=== PATIENT | male | born 1955 | race Caucasian/White ===

== ENCOUNTER 2024-02-02 18:21 | Inpatient (IN) | payer MEDICARE, OTHER ==
[~2024-02-02] VITALS: Ht 177.8 cm; Wt 134.7 kg
[~2024-02-02 18:21] MED LIST: ROCURONIUM BROMIDE 10MG/ML VIAL 5ML IV ONE
[2024-02-02] MEDS: SODIUM CHLORIDE 0.9% 1,000 ML IV ONE ×2 (18:31→19:44)
[2024-02-02] MEDS: PIPERACILLIN/TAZO 3.375G/50ML 50 ML IV ONE (18:33)
[2024-02-02 18:45] VITALS: PULSE 66; RESP 14; O2SAT 100
[2024-02-02 18:47] LABS: BASOPHILS % 0.9 % (0.0-2.0); EOSINOPHILS % 1.4 % (0.0-5.0); HEMATOCRIT. 39.2 % (42.0-52.0); HEMOGLOBIN. 12.5 g/dL (14.0-18.0); LYMPHOCYTES % 31.5 % (20.0-50.0); MEAN CORPUSCULAR HEMOGLOBIN 30.9 pg (28.0-32.0); MEAN CORPUSCULAR HGB CONC 31.8 g/dL (31.0-37.0); MEAN CORPUSCULAR VOLUME 97.1 fL (80.0-94.0); MEAN PLATELET VOLUME 6.4 fl (7.4-10.4); MONOCYTES % 7.4 % (2.0-8.0); NEUTROPHILS % 58.8 % (40.0-76.0); PLATELET 290 x1000/uL (130-400); RED BLOOD CELL COUNT 4.04 mill/uL (4.7-6.1); RED CELL DISTRIBUTION WIDTH 16.4 % (11.6-14.6); WHITE BLOOD COUNT 11.3 x1000/uL (4.5-11.0)
[2024-02-02 18:55] LABS: CHLORIDE 104 mEq/L (98-107); POTASSIUM 4.3 mEq/L (3.5-5.1); SODIUM 136 mEq/L (136-145)
[2024-02-02 18:56] LABS: CALCIUM 8.5 mg/dL (8.7-10.4); CARBON DIOXIDE 18 mEq/L (21-32)
[2024-02-02 19:01] LABS: CREATININE 0.9 mg/dL (0.6-1.3); ETHANOL BLOOD 117 mg/dL (<10); GLUCOSE 162 mg/dL (70-105); UREA NITROGEN BLOOD 11 mg/dL (9-23)
[2024-02-02 19:03] LABS: ALANINE AMINOTRANSFERASE 75 IU/L (10-49); ALBUMIN 3.8 g/dL (3.2-4.8); ASPARTATE AMINOTRANSFERASE 138 IU/L (<34); BILIRUBIN DIRECT 0.2 mg/dL (<=3.0); BILIRUBIN TOTAL 0.5 mg/dL (0.1-1.0)
[2024-02-02 19:08] LABS: LACTIC ACID 7.2 mmol/L (0.4-2.0); TROPONIN I HIGH SENSITIVITY 54 ng/L (3.0-53)
[2024-02-02 19:53] LABS: D-DIMER 8.61 mg/L FEU (<0.50); PROTHROMBIN TIME 10.7 sec (9.6-11.0)
[2024-02-02 20:30] VITALS: PULSE 64; RESP 28; O2SAT 100
[2024-02-02 21:01] LABS: BG BASE EXCESS -8.5 mmol/L (-2.0-3.0); BG CARBOXYHEMOGLOBIN 0.2 % (0.5-1.5); BG DEOXYHEMOGLOBIN 3.7 % (0.0-5.0); BG FRACTION INSPIRED OXYGEN 100; BG HCO3 ACT 19.7 mmol/L (21.0-28.0); BG METHEMOGLOBIN 0.3 % (0.5-1.5); BG OXYGEN SATURATION 96.3 % (94.0-98.0); BG OXYHEMOGLOBIN 95.8 % (94.0-98.0); BG PCO2 51.6 mmHg (35.0-48.0); BG PO2 98.8 mmHg (83.0-108.0); BG SAMPLE SITE RIGHT RADIAL; BG TOTAL HEMOGLOBIN 13.7 g/dL (13.5-17.5); BG VENT MODE VENT - AC
[2024-02-02] MEDS: PROPOFOL 10MG/ML 100ML 100 ML IV ONE (21:22)
[2024-02-02 22:09] LABS: TROPONIN I HIGH SENSITIVITY 261 ng/L (3.0-53)
[2024-02-02 23:08] LABS: TROPONIN I HIGH SENSITIVITY 315 ng/L (3.0-53)
[2024-02-02 23:24] LABS: BG BASE EXCESS -4.5 mmol/L (-2.0-3.0); BG CARBOXYHEMOGLOBIN 0.4 % (0.5-1.5); BG DEOXYHEMOGLOBIN 0.3 % (0.0-5.0); BG FRACTION INSPIRED OXYGEN 100; BG METHEMOGLOBIN 0.3 % (0.5-1.5); BG OXYGEN SATURATION 99.7 % (94.0-98.0); BG PCO2 40.1 mmHg (35.0-48.0); BG PH 7.336 (7.350-7.450); BG PO2 312.5 mmHg (83.0-108.0); BG SAMPLE SITE LEFT RADIAL; BG TOTAL HEMOGLOBIN 13.3 g/dL (13.5-17.5); BG TOTAL RESPIRATORY RATE 20 b/min; BG VENT MODE VENT - AC
[2024-02-03] VITALS (69 sets, daily range): BP systolic 113–188; BP diastolic 62–93; PULSE 53–105; RESP 16–33; TEMP 36.44736–37.7808; O2SAT 97–100
[2024-02-03] MEDS ORDERED: GUAIFENESIN 200MG/10ML SUGAR FREE UDC PO PRN (00:45)
[2024-02-03] MEDS ORDERED: CLONIDINE 0.1MG TABLET PO PRN (00:45)
[2024-02-03] MEDS ORDERED: IPRATROPIUM/ALBUTEROL 0.5-3(2.5)MG/3ML NEB HHN PRN (00:45)
[2024-02-03] MEDS ORDERED: DEXTROSE 50% WATER 50ML SYRINGE IV PRN (00:45)
[2024-02-03 00:49] LABS: COLOR URINE YELLOW (YELLOW)
[2024-02-03 00:50] LABS: CLARITY URINE CLOUDY (CLEAR); GLUCOSE URINE NEGATIVE (NEGATIVE); KETONES URINE NEGATIVE (NEGATIVE); LEUKOCYTE ESTERASE URINE NEGATIVE (NEGATIVE); NITRITE URINE NEGATIVE (NEGATIVE); OCCULT BLOOD URINE 1+ (NEGATIVE); PH URINE 5.5 (4.5-8.0); PROTEIN URINE 1+ (NEGATIVE); UROBILINOGEN URINE 0.2 E.U./dL (0.2-1.0)
[2024-02-03 00:53] LABS: BACTERIA URINE 2+; SQUAMOUS EPITHELIAL CELL URINE 1+ /lpf (RARE/1+)
[2024-02-03] MEDS: LORAZEPAM 2MG/ML INJ IV PRN (01:13)
[2024-02-03 01:47] LABS: IRON 121 ug/dL (65-175)
[2024-02-03 01:48] LABS: LDL CHOLESTEROL 72 mg/dL (5-100); TRIGLYCERIDE 147 mg/dL (0-150)
[2024-02-03 01:49] LABS: HDL CHOLESTEROL 78 mg/dL (>55)
[2024-02-03 01:50] LABS: CHOLESTEROL 159 mg/dL (<200); TOTAL IRON BINDING CAPACITY 398 ug/dl (250-425)
[2024-02-03 01:51] LABS: FOLIC ACID (FOLATE) SERUM 8.87 ng/mL (>5.38); VITAMIN B12 SERUM 452 pg/mL (211-911)
[2024-02-03 01:52] LABS: THYROID STIMULATING HORMONE 1.74 uIU/mL (0.55-4.78)
[2024-02-03] MEDS ORDERED: MIDAZOLAM 100MG/100ML PMX 100 ML IV PRN (02:30)
[2024-02-03] MEDS: VANCOMYCIN 2,000 MG in DEXT 5% WATER 500 ML IV NR (02:36)
[2024-02-03] MEDS: ACETAMINOPHEN 1000MG/100ML 100 ML IV NR (02:36)
[2024-02-03] MEDS: PROPOFOL 10MG/ML 100ML 100 ML IV SCH (02:36)
[2024-02-03] MEDS: MIDAZOLAM 100MG/100ML PMX 100 ML IV PRN ×2 (03:01→16:21)
[2024-02-03] MEDS: IOHEXOL-350 100 ML BOTTLE ONE (03:19)
[2024-02-03 06:20] LABS: HEMATOCRIT 38.3 % (42.0-52.0); HEMOGLOBIN 12.6 g/dL (14.0-18.0); MEAN CORPUSCULAR HEMOGLOBIN 31.7 pg (28.0-32.0); MEAN CORPUSCULAR HGB CONC 32.7 g/dL (31.0-37.0); MEAN CORPUSCULAR VOLUME 96.9 fL (80.0-94.0); PLATELET 295 x1000/uL (130-400); RED BLOOD CELL COUNT 3.96 mill/uL (4.7-6.1); RED CELL DISTRIBUTION WIDTH 16.7 % (11.6-14.6)
[2024-02-03 06:29] LABS: CARBON DIOXIDE 23 mEq/L (21-32); CHLORIDE 103 mEq/L (98-107); POTASSIUM 4.6 mEq/L (3.5-5.1); SODIUM 133 mEq/L (136-145)
[2024-02-03 06:30] LABS: CALCIUM 8.9 mg/dL (8.7-10.4)
[2024-02-03] MEDS: DEXT 5%/0.45% NACL 1000ML 1,000 ML IV SCH (06:32)
[2024-02-03 06:35] LABS: CREATININE 0.8 mg/dL (0.6-1.3); GLUCOSE 143 mg/dL (70-105); UREA NITROGEN BLOOD 10 mg/dL (9-23)
[2024-02-03 06:36] LABS: CREATINE KINASE MB FRACTION 6.6 ng/mL (0.5-3.6)
[2024-02-03 06:37] LABS: ALANINE AMINOTRANSFERASE 81 IU/L (10-49); ALBUMIN 4.1 g/dL (3.2-4.8); ASPARTATE AMINOTRANSFERASE 151 IU/L (<34); BILIRUBIN TOTAL 0.7 mg/dL (0.1-1.0); PHOSPHORUS 2.2 mg/dL (2.5-4.9); PROTEIN TOTAL 6.5 g/dL (6.0-8.3)
[2024-02-03] MEDS: INSULIN LISPRO 100 UNITS/ML SUBCUT SCH (08:20)
[2024-02-03] MEDS ORDERED: VANCOMYCIN 1GM/200ML PMX (BAXTER) IV SCH (09:00)
[2024-02-03] MEDS: PANTOPRAZOLE SODIUM 40 MG/VIAL IV SCH (09:03)
[2024-02-03] MEDS: ENOXAPARIN 30MG/0.3ML SYR SUBCUT SCH (09:03)
[2024-02-03] MEDS: BLOOD SUGAR DIAGNOSTIC STRIP TEST SCH (09:03)
[2024-02-03] MEDS: PIPERACILLIN/TAZO 3.375G/50ML 50 ML IV SCH (09:04)
[2024-02-03 11:51] LABS: BG BASE EXCESS -0.3 mmol/L (-2.0-3.0); BG CARBOXYHEMOGLOBIN 0.5 % (0.5-1.5); BG DEOXYHEMOGLOBIN 1.6 % (0.0-5.0); BG FRACTION INSPIRED OXYGEN 50; BG HCO3 ACT 23.2 mmol/L (21.0-28.0); BG METHEMOGLOBIN 0.3 % (0.5-1.5); BG OXYGEN SATURATION 98.4 % (94.0-98.0); BG OXYHEMOGLOBIN 97.6 % (94.0-98.0); BG PCO2 34.3 mmHg (35.0-48.0); BG PH 7.448 (7.350-7.450); BG SAMPLE SITE LEFT RADIAL; BG TOTAL HEMOGLOBIN 13.2 g/dL (13.5-17.5); BG TOTAL RESPIRATORY RATE 21 b/min; BG VENT MODE VENT - AC
[2024-02-03] MEDS: IPRATROPIUM/ALBUTEROL 0.5-3(2.5)MG/3ML NEB HHN SCH (13:10)
[2024-02-03] MEDS: BUDESONIDE 0.5MG/2ML NEB HHN SCH (13:10)
[2024-02-03] MEDS: ENOXAPARIN 80MG/0.8ML SYR SUBCUT SCH (13:27)
[2024-02-03] MEDS: THIAMINE HCL 100MG TABLET NG SCH (13:28)
[2024-02-03] MEDS: ASPIRIN 81MG TABLET PO SCH (13:28)
[2024-02-03] MEDS: FOLIC ACID 1MG TABLET NG SCH (13:28)
[2024-02-03] MEDS: MULTIVITAMINS,THER W-MINERALS TABLET NG SCH (13:28)
[2024-02-03] MEDS: MAGNESIUM 2 G PREMIX 50 ML IV NR (15:53)
[2024-02-03] MEDS: SODIUM PHOSPHATE 30 MMOL in DEXT 5% WATER 490 ML IV NR (15:57)
[2024-02-03] MEDS: ATORVASTATIN CALCIUM 40MG TABLET NG SCH (20:23)
[2024-02-03] MEDS: VANCOMYCIN 1GM/200ML PMX (BAXTER) IV SCH (20:23)
[2024-02-03] MEDS: ACETAMINOPHEN 650MG/20.3ML UDC GT PRN (20:23)
[2024-02-03] MEDS: HYDRALAZINE 20MG/ML VIAL IV PRN (20:24)
[2024-02-03] MEDS ORDERED: FENTANYL 2500MCG/250ML PMX 250 ML IV ONE (22:00)
[2024-02-03] MEDS: FENTANYL 2500MCG/250ML PMX 250 ML IV PRN (22:19)
[2024-02-03] MEDS: ENOXAPARIN 100MG/ML SYR SUBCUT SCH (22:44)
[2024-02-03] MEDS: PROPOFOL 10MG/ML 100ML 100 ML IV PRN (22:45)
[2024-02-04] VITALS (75 sets, daily range): BP systolic 81–174; BP diastolic 34–138; PULSE 52–113; RESP 0–34; TEMP 35.2806–38.72532; O2SAT 94–100
[2024-02-04 00:37] LABS: CREATINE KINASE MB FRACTION 12.3 ng/mL (0.5-3.6)
[2024-02-04] MEDS ORDERED: OMEG100017 PO (03:17)
[2024-02-04] MEDS ORDERED: ROSU20TA2 PO (03:17)
[2024-02-04] MEDS ORDERED: LISI20TA31 PO (03:17)
[2024-02-04] MEDS ORDERED: EFEX1 PO (03:17)
[2024-02-04] MEDS ORDERED: TAMS-11 PO (03:17)
[2024-02-04] MEDS ORDERED: APIX5TAB PO (03:17)
[2024-02-04] MEDS ORDERED: SOTA80TA PO (03:17)
[2024-02-04] MEDS ORDERED: GABA-532 PO (03:17)
[2024-02-04] MEDS ORDERED: POTA-205 PO (03:17)
[2024-02-04] MEDS: INSULIN LISPRO 100 UNITS/ML SUBCUT SCH (05:44)
[2024-02-04] MEDS: BLOOD SUGAR DIAGNOSTIC STRIP TEST SCH (05:44)
[2024-02-04 08:36] LABS: BG BASE EXCESS 0.4 mmol/L (-2.0-3.0); BG CARBOXYHEMOGLOBIN 0.4 % (0.5-1.5); BG DEOXYHEMOGLOBIN 2.7 % (0.0-5.0); BG FRACTION INSPIRED OXYGEN 50; BG HCO3 ACT 25.7 mmol/L (21.0-28.0); BG METHEMOGLOBIN 0.3 % (0.5-1.5); BG OXYGEN SATURATION 97.3 % (94.0-98.0); BG OXYHEMOGLOBIN 96.6 % (94.0-98.0); BG PCO2 44.3 mmHg (35.0-48.0); BG PH 7.382 (7.350-7.450); BG PO2 94.6 mmHg (83.0-108.0); BG SAMPLE SITE LEFT RADIAL; BG TOTAL HEMOGLOBIN 13.7 g/dL (13.5-17.5); BG TOTAL RESPIRATORY RATE 30 b/min; BG VENT MODE VENT - AC
[2024-02-04] MEDS: TAMSULOSIN HCL 0.4MG SR CAPSULE PO SCH (08:43)
[2024-02-04] MEDS: ENOXAPARIN 30MG/0.3ML SYR SUBCUT SCH (08:46)
[2024-02-04 10:30] LABS: HEMATOCRIT 44.3 % (42.0-52.0); MEAN CORPUSCULAR HEMOGLOBIN 31.8 pg (28.0-32.0); MEAN CORPUSCULAR HGB CONC 31.7 g/dL (31.0-37.0); MEAN CORPUSCULAR VOLUME 100.4 fL (80.0-94.0); RED BLOOD CELL COUNT 4.42 mill/uL (4.7-6.1); WHITE BLOOD COUNT 9.9 x1000/uL (4.5-11.0)
[2024-02-04 10:43] LABS: CHLORIDE 92 mEq/L (98-107); POTASSIUM 3.9 mEq/L (3.5-5.1); SODIUM 123 mEq/L (136-145)
[2024-02-04 10:44] LABS: CALCIUM 7.7 mg/dL (8.7-10.4); CARBON DIOXIDE 22 mEq/L (21-32)
[2024-02-04 10:49] LABS: CREATININE 0.9 mg/dL (0.6-1.3)
[2024-02-04 10:50] LABS: UREA NITROGEN BLOOD 10 mg/dL (9-23)
[2024-02-04 10:56] LABS: GLUCOSE 471 mg/dL (70-105)
[2024-02-04 11:19] LABS: TRIGLYCERIDE 169 mg/dL (0-150)
[2024-02-04] MEDS: POTASSIUM CHLORIDE 20MEQ/PACKET PO NR (11:50)
[2024-02-04] MEDS: ACETAMINOPHEN 650MG/20.3ML UDC GT PRN (11:50)
[2024-02-04] MEDS: MAGNESIUM 2 G PREMIX 50 ML IV NR (11:50)
[2024-02-04] MEDS: NOREPINEPHRINE 8MG/250ML PMX 250 ML IV PRN (19:23)
[2024-02-04] MEDS ORDERED: PROPOFOL 10MG/ML 100ML 100 ML IV PRN (19:30)
[2024-02-04] MEDS: LEVETIRACETAM 500MG PREMIX 100 ML IV SCH (20:48)
[2024-02-04] MEDS ORDERED: LEVETIRACETAM 500MG in NACL 100ML PREMIX IV SCH (21:00)
[2024-02-05] VITALS (115 sets, daily range): BP systolic 69–240; BP diastolic 42–193; PULSE 56–105; RESP 0–30; TEMP 35.2806–38.28084; O2SAT 96–100
[2024-02-05] MEDS: LORAZEPAM 2MG/ML INJ IV PRN (02:12)
[2024-02-05 06:07] LABS: CARBON DIOXIDE 25 mEq/L (21-32); CHLORIDE 100 mEq/L (98-107); POTASSIUM 3.9 mEq/L (3.5-5.1)
[2024-02-05 06:08] LABS: CALCIUM 8.4 mg/dL (8.7-10.4)
[2024-02-05 06:13] LABS: CREATININE 0.7 mg/dL (0.6-1.3); TRIGLYCERIDE 155 mg/dL (0-150); UREA NITROGEN BLOOD 9 mg/dL (9-23)
[2024-02-05 06:16] LABS: GLUCOSE 140 mg/dL (70-105); SODIUM 132 mEq/L (136-145)
[2024-02-05 06:46] LABS: BASOPHILS % 0.6 % (0.0-2.0); EOSINOPHILS % 1.3 % (0.0-5.0); HEMOGLOBIN. 11.8 g/dL (14.0-18.0); MEAN CORPUSCULAR HEMOGLOBIN 31.9 pg (28.0-32.0); MEAN CORPUSCULAR HGB CONC 32.9 g/dL (31.0-37.0); MEAN PLATELET VOLUME 6.9 fl (7.4-10.4); MONOCYTES % 8.6 % (2.0-8.0); NEUTROPHILS % 78.5 % (40.0-76.0); PLATELET 263 x1000/uL (130-400); RED BLOOD CELL COUNT 3.71 mill/uL (4.7-6.1); RED CELL DISTRIBUTION WIDTH 16.6 % (11.6-14.6); WHITE BLOOD COUNT 10.3 x1000/uL (4.5-11.0)
[2024-02-05 09:08] LABS: BG BASE EXCESS 1.2 mmol/L (-2.0-3.0); BG CARBOXYHEMOGLOBIN 0.4 % (0.5-1.5); BG DEOXYHEMOGLOBIN 4.6 % (0.0-5.0); BG FRACTION INSPIRED OXYGEN 40; BG HCO3 ACT 27.2 mmol/L (21.0-28.0); BG METHEMOGLOBIN 0.3 % (0.5-1.5); BG OXYGEN SATURATION 95.4 % (94.0-98.0); BG OXYHEMOGLOBIN 94.7 % (94.0-98.0); BG PCO2 48.5 mmHg (35.0-48.0); BG PH 7.366 (7.350-7.450); BG SAMPLE SITE RIGHT RADIAL; BG TOTAL HEMOGLOBIN 12.4 g/dL (13.5-17.5); BG VENT MODE VENT - AC
[2024-02-05] MEDS: LEVETIRACETAM 500MG PREMIX 100 ML IV NR (12:15)
[2024-02-05] MEDS: LEVETIRACETAM 1000MG PREMIX 100 ML IV SCH (20:35)
[2024-02-06] VITALS (100 sets, daily range): BP systolic 84–234; BP diastolic 54–187; PULSE 70–104; RESP 7–28; TEMP 36.72516–38.16972; O2SAT 94–100
[2024-02-06] MEDS: ONDANSETRON HCL 4MG/2ML INJ IV PRN (04:41)
[2024-02-06 05:32] LABS: CALCIUM 8.3 mg/dL (8.7-10.4); CARBON DIOXIDE 27 mEq/L (21-32); CHLORIDE 99 mEq/L (98-107); POTASSIUM 4.3 mEq/L (3.5-5.1); SODIUM 130 mEq/L (136-145)
[2024-02-06 05:38] LABS: CREATININE 0.6 mg/dL (0.6-1.3); GLUCOSE 97 mg/dL (70-105); UREA NITROGEN BLOOD 9 mg/dL (9-23)
[2024-02-06 05:56] LABS: HEMATOCRIT 36.1 % (42.0-52.0); HEMOGLOBIN 11.8 g/dL (14.0-18.0); MEAN CORPUSCULAR HEMOGLOBIN 31.7 pg (28.0-32.0); MEAN CORPUSCULAR HGB CONC 32.8 g/dL (31.0-37.0); MEAN CORPUSCULAR VOLUME 96.8 fL (80.0-94.0); PLATELET 244 x1000/uL (130-400); RED BLOOD CELL COUNT 3.73 mill/uL (4.7-6.1); RED CELL DISTRIBUTION WIDTH 16.2 % (11.6-14.6); WHITE BLOOD COUNT 10.6 x1000/uL (4.5-11.0)
[2024-02-06] MEDS: DEXT 5%/0.9% NACL 1,000 ML IV SCH (08:39)
[2024-02-06 10:31] LABS: CREATINE KINASE 726 IU/L (46-171)
[2024-02-06] MEDS ORDERED: MEPERIDINE HCL/PF 50MG/ML CPJ IM PRN (12:15)
[2024-02-06] MEDS: METOCLOPRAMIDE HCL 10MG/2ML VIAL IV SCH (13:22)
[2024-02-06] MEDS ORDERED: LIDOCAINE HCL 1% 10 MG/ML 10ML VIAL ONE (14:13)
[2024-02-06] MEDS: MEPERIDINE HCL/PF 25MG/ML CPJ IM PRN (15:45)
[2024-02-07] VITALS (72 sets, daily range): BP systolic 77–151; BP diastolic 41–123; PULSE 71–111; RESP 0–33; TEMP 36.28068–38.83644; O2SAT 95–100
[2024-02-08] VITALS (62 sets, daily range): BP systolic 86–180; BP diastolic 42–168; PULSE 62–106; RESP 14–39; TEMP 35.89176–38.3364; O2SAT 93–100
[2024-02-08 05:38] LABS: HEMATOCRIT. 33.9 % (42.0-52.0); HEMOGLOBIN. 11.2 g/dL (14.0-18.0); MEAN CORPUSCULAR HEMOGLOBIN 31.8 pg (28.0-32.0); MEAN CORPUSCULAR HGB CONC 32.9 g/dL (31.0-37.0); MEAN CORPUSCULAR VOLUME 96.4 fL (80.0-94.0); MEAN PLATELET VOLUME 7.1 fl (7.4-10.4); PLATELET 256 x1000/uL (130-400); RED BLOOD CELL COUNT 3.51 mill/uL (4.7-6.1); RED CELL DISTRIBUTION WIDTH 16.9 % (11.6-14.6); WHITE BLOOD COUNT 18.1 x1000/uL (4.5-11.0)
[2024-02-08 05:42] LABS: CHLORIDE 98 mEq/L (98-107); POTASSIUM 4.1 mEq/L (3.5-5.1); SODIUM 130 mEq/L (136-145)
[2024-02-08 05:43] LABS: CALCIUM 8.5 mg/dL (8.7-10.4); CARBON DIOXIDE 26 mEq/L (21-32)
[2024-02-08 05:47] LABS: DIFFERENTIAL COMMENT 1
[2024-02-08 05:48] LABS: CREATININE 0.6 mg/dL (0.6-1.3); GLUCOSE 116 mg/dL (70-105); UREA NITROGEN BLOOD 9 mg/dL (9-23)
[2024-02-08 09:43] LABS: ANISOCYTOSIS 1+; PLATELET ESTIMATE NORMAL
[2024-02-08 12:28] LABS: BG BASE EXCESS 2.4 mmol/L (-2.0-3.0); BG CARBOXYHEMOGLOBIN 0.3 % (0.5-1.5); BG DEOXYHEMOGLOBIN 1.1 % (0.0-5.0); BG FRACTION INSPIRED OXYGEN 40; BG HCO3 ACT 26.2 mmol/L (21.0-28.0); BG METHEMOGLOBIN 0.3 % (0.5-1.5); BG OXYGEN SATURATION 98.9 % (94.0-98.0); BG OXYHEMOGLOBIN 98.3 % (94.0-98.0); BG PCO2 37.6 mmHg (35.0-48.0); BG PH 7.461 (7.350-7.450); BG PO2 131.4 mmHg (83.0-108.0); BG SAMPLE SITE RIGHT BRACHIAL; BG TOTAL HEMOGLOBIN 10.7 g/dL (13.5-17.5); BG TOTAL RESPIRATORY RATE 22 b/min; BG VENT MODE VENT - AC
[2024-02-08] MEDS: MEROPENEM 1G/100ML 100 ML IV SCH (16:54)
[2024-02-09] VITALS (45 sets, daily range): BP systolic 95–178; BP diastolic 51–167; PULSE 17–99; RESP 12–31; TEMP 36.55848–38.66976; O2SAT 93–100
[2024-02-09 06:26] LABS: HEMATOCRIT. 30.5 % (42.0-52.0); HEMOGLOBIN. 10.1 g/dL (14.0-18.0); MEAN CORPUSCULAR HGB CONC 33.2 g/dL (31.0-37.0); MEAN CORPUSCULAR VOLUME 96.4 fL (80.0-94.0); MEAN PLATELET VOLUME 6.8 fl (7.4-10.4); PLATELET 262 x1000/uL (130-400); RED BLOOD CELL COUNT 3.17 mill/uL (4.7-6.1); RED CELL DISTRIBUTION WIDTH 16.9 % (11.6-14.6); WHITE BLOOD COUNT 13.8 x1000/uL (4.5-11.0)
[2024-02-09 06:28] LABS: CARBON DIOXIDE 28 mEq/L (21-32); CHLORIDE 99 mEq/L (98-107); POTASSIUM 3.2 mEq/L (3.5-5.1); SODIUM 132 mEq/L (136-145)
[2024-02-09 06:29] LABS: CALCIUM 8.1 mg/dL (8.7-10.4)
[2024-02-09 06:34] LABS: CREATININE 0.6 mg/dL (0.6-1.3); GLUCOSE 148 mg/dL (70-105); UREA NITROGEN BLOOD 10 mg/dL (9-23)
[2024-02-09 07:27] LABS: DIFFERENTIAL COMMENT 1
[2024-02-09] MEDS: KCL 10MEQ/50ML PREMIX 50 ML IV SCH (08:08)
[2024-02-09] MEDS ORDERED: MORPHINE SULFATE 250 MG in DEXT 5% WATER 240 ML IV PRN (14:30)
[2024-02-09] MEDS ORDERED: LORAZEPAM 2MG/ML INJ IV PRN (14:30)
[2024-02-09] MEDS: MORPHINE SULFATE 250 MG in DEXT 5% WATER 250 ML IV PRN (15:22)
[2024-02-10 13:30] LABS: ANISOCYTOSIS 1+; PLATELET ESTIMATE NORMAL
== END 2024-02-09 16:46 | DRG 870 ==
LOC: ER 18:21 → CVICU 21:15 → EDBEDREQ 21:23 → EDBEDREQTM 21:23
PROVIDERS: ADMIT Internal Medicine; ATTEND Internal Medicine
PROC: 5A1955Z Respiratory Ventilation, Greater than 96 Consecutive Hours (ICD-10-PCS; principal; 2024-02-02)
PROC: 0BH17EZ Insertion of Endotracheal Airway into Trachea, Via Natural or Artificial Opening (ICD-10-PCS; 2024-02-02)
PROC: 05H533Z Insertion of Infusion Device into Right Subclavian Vein, Percutaneous Approach (ICD-10-PCS; 2024-02-06)
PROC: B546ZZA Ultrasonography of Right Subclavian Vein, Guidance (ICD-10-PCS; 2024-02-06)
PROC: 4A00X4Z Measurement of Central Nervous Electrical Activity, External Approach (ICD-10-PCS; 2024-02-06)
PROC: 4A00X4Z Measurement of Central Nervous Electrical Activity, External Approach (ICD-10-PCS; 2024-02-08)
DX: A41.9 Sepsis, unspecified organism (principal); I21.4 Non-ST elevation (NSTEMI) myocardial infarction; J69.0 Pneumonitis due to inhalation of food and vomit; J96.01 Acute respiratory failure with hypoxia; J96.02 Acute respiratory failure with hypercapnia; E87.20 Acidosis, unspecified; M62.82 Rhabdomyolysis; Z68.41 Body mass index [BMI] 40.0-44.9, adult; G93.1 Anoxic brain damage, not elsewhere classified; E87.1 Hypo-osmolality and hyponatremia; J68.0 Bronchitis and pneumonitis due to chemicals, gases, fumes and vapors; I46.9 Cardiac arrest, cause unspecified; E78.5 Hyperlipidemia, unspecified; F10.10 Alcohol abuse, uncomplicated; F17.210 Nicotine dependence, cigarettes, uncomplicated; I11.9 Hypertensive heart disease without heart failure; I48.91 Unspecified atrial fibrillation; I95.1 Orthostatic hypotension; K57.30 Diverticulosis of large intestine without perforation or abscess without bleeding; E66.01 Morbid (severe) obesity due to excess calories; R74.01 Elevation of levels of liver transaminase levels; R16.0 Hepatomegaly, not elsewhere classified; F32.A Depression, unspecified; D53.9 Nutritional anemia, unspecified; M85.80 Other specified disorders of bone density and structure, unspecified site; Z79.01 Long term (current) use of anticoagulants; Z79.899 Other long term (current) drug therapy; Y90.5 Blood alcohol level of 100-119 mg/100 ml
CPT/HCPCS: 31500; 36415; 36573; 36600; 70551; 71045; 71275; 74174; 80048; 80053; 80061; 80076; 80202; 80320; 81003; 82375; 82550; 82553; 82607; 82746; 82805; 82962; 83036; 83540; 83550; 83605; 83735; 83880; 84100; 84145; 84443; 84478; 84484; 85025; 85027; 85379; 86850; 86900; 87070; 93005; 93306; 93970; 94003; 94640; 95816; 99291; C1725; C1892; J0360; J1650; J1815; J1953; J2060; J2175; J2185; J2250; J2270; J2405; J2470; J2543; J2704; J2765; J3010; J3370; J3475; J3480; J3490; J7030; J7042; J7060; J7626; Q9967; G0480; J0131